=== PATIENT | male | born 2005 | race Caucasian/White ===

== ENCOUNTER 2024-01-25 19:47 | Emergency (ER) | payer MEDICAID, OTHER ==
[2024-01-25 20:46] VITALS: BP 128/72; RESP 16; TEMP 98.1; O2SAT 100
[2024-01-25] MEDS ORDERED: CLEOCIN 150 MG CAPSULE ONE (20:59)
[2024-01-25] MEDS: CLEOCIN 150 MG CAPSULE PO ONE ×2 (21:00→21:03)
--- NOTE | 2024-01-25 21:00 | ERPHSYRPT ---
- History of Present Illness Time Seen by Provider: 01/25/24 20:48 Source: patient Exam Limitations: no limitations Physician History: Pt states he was bitten by chiggers about 2 days ago on the legs/feet and the feet/ankles have become red; denies fever, shortness of air, chest pain, abdominal pain, vomiting. - Review of Systems Constitutional: No Fever Respiratory: No Dyspnea Cardiac: No Chest Pain Abdominal/Gastrointestinal: No Abdominal Pain, No Vomiting Skin: Rash (on feet/legs for the past 2 days) - Nursing Vital Signs Nursing Vital Signs: Initial Vital Signs Temperature 98.1 F 01/25/24 20:44 Pulse Rate 65 01/25/24 20:44 Respiratory Rate 16 01/25/24 20:44 Blood Pressure 128/72 01/25/24 20:44 O2 Sat by Pulse Oximetry 100 01/25/24 20:44 Pain Scale Pain Intensity 5 - Physical Exam General Appearance: alert Eye Exam: eyes nml inspection Ears, Nose, Throat Exam: TMs normal, pharynx normal Neck Exam: normal inspection Respiratory Exam: lungs clear Cardiovascular Exam: normal heart sounds Gastrointestinal/Abdomen Exam: normal bowel sounds Extremity Exam: other (insect bites on both feet/ankles/legs with erythema on ankles & feet) Neurologic Exam: alert, cooperative Skin Exam: No cyanosis SpO2 Interpretation: normal SpO2: 100 O2 Delivery: Room Air - Progress Progress: unchanged Counseled pt/family regarding: diagnosis - Departure Departure Disposition: Home Clinical Impression: cellulitis of both feet/ankles, Insect bites Condition: Stable Critical Care Time: No Instructions: Insect Bites and Stings (DC), Cellulitis (Skin Infection), Adult ED Additional Instructions: Follow up with private doctor tomorrow. Prescriptions: clindamycin HCL [Clindamycin HCl] 300 mg PO Q6H #40 cap
[2024-01-25 21:14] VITALS: PULSE 60
== END 2024-01-25 21:14 | disposition home or self-care (01) ==
LOC: ED 19:47
DX: S90.862A Insect bite (nonvenomous), left foot, initial encounter (principal); S90.861A Insect bite (nonvenomous), right foot, initial encounter; S90.562A Insect bite (nonvenomous), left ankle, initial encounter; S90.561A Insect bite (nonvenomous), right ankle, initial encounter; L03.116 Cellulitis of left lower limb; L03.115 Cellulitis of right lower limb; W57.XXXA Bitten or stung by nonvenomous insect and other nonvenomous arthropods, initial encounter
CPT/HCPCS: 99281; A9270-GY